=== PATIENT | female | born 1955 ===

== ENCOUNTER 2020-10-15 10:04 | Day surgery (SDC) | payer OTHER ==
[~2020-10-15 10:04] MED LIST: TOPROL XL50 M1 PO
== END 2020-10-15 16:40 | disposition home or self-care (01) ==
LOC: CIR.AMB 10:04
PROVIDERS: ATTEND Student in an Organized Health Care Education/Training Program
DX: C54.1 Malignant neoplasm of endometrium (principal); Z20.822 Contact with and (suspected) exposure to COVID-19

== ENCOUNTER 2020-12-04 12:00 | Inpatient (IN) | payer OTHER ==
[~2020-12-04] VITALS: Ht 157.5 cm; Wt 81.6 kg
[2020-12-11] MEDS ORDERED: PROLIA60 MG/1 ML (11:50)
== END 2020-12-12 14:36 | disposition home or self-care (01) | DRG 741 ==
LOC: O/R 12-11 07:03 → SURH 12-11 12:00 → SURG 12-11 20:02
PROVIDERS: ADMIT Obstetrics & Gynecology Gynecologic Oncology; ATTEND Obstetrics & Gynecology Gynecologic Oncology
PROC: 0UT24ZZ Resection of Bilateral Ovaries, Percutaneous Endoscopic Approach (ICD-10-PCS; 2020-12-11)
PROC: 0UT74ZZ Resection of Bilateral Fallopian Tubes, Percutaneous Endoscopic Approach (ICD-10-PCS; 2020-12-11)
PROC: 07BC4ZZ Excision of Pelvis Lymphatic, Percutaneous Endoscopic Approach (ICD-10-PCS; 2020-12-11)
PROC: 0UT94ZZ Resection of Uterus, Percutaneous Endoscopic Approach (ICD-10-PCS; principal; 2020-12-11 18:15)
DX: C54.1 Malignant neoplasm of endometrium (principal); D25.2 Subserosal leiomyoma of uterus; D25.1 Intramural leiomyoma of uterus; N80.0 Endometriosis of uterus; N72 Inflammatory disease of cervix uteri; N83.8 Other noninflammatory disorders of ovary, fallopian tube and broad ligament